=== PATIENT | male | born 1990 | race American Indian/Alaskan Native ===

== ENCOUNTER 2017-01-03 04:59 | Emergency (ER) | payer OTHER ==
[2017-01-03 07:26] VITALS: BP 139/78
--- NOTE | 2017-01-03 07:47 | Emergency Department Report ---
HPI - General Chief Complaint: Sore Throat Time Seen by Provider: 01/03/17 07:41 - HPI HPI: Patient here report sre throat, fever and bodyache x 2 days. Denies nausea or vomitting. Reports fgever and chillls, Pain worst with swallowing better with advil. Pain 6/10. No difficulty breathing, swallow. Reports fever and chills. No cough or nasal congestion. ED Past Medical Hx - Past Medical History Previous Medical History?: No - Surgical History Past Surgical History?: No - Family History Family history: no significant - Social History Smoking Status: Never Smoker Substance Use Type: Alcohol - Medications Home Medications: Home Medications Medication Instructions Recorded Confirmed Last Taken Type Ibuprofen [Motrin] 600 mg PO Q8H PRN #15 tablet 01/03/17 Unknown Rx Penicillin Vk [Veetids TAB] 2 tabcap PO Q8H #60 tablet 01/03/17 Unknown Rx ED Review of Systems ROS: Stated complaint: FLU SYMPTOMS X4DAYS Other details as noted in HPI Comment: All other systems reviewed and negative Constitutional: chills, fever ENT: throat pain. denies: ear pain, dental pain, congestion Respiratory: no symptoms reported Cardiovascular: denies: chest pain, palpitations, edema, syncope Gastrointestinal: denies: abdominal pain, nausea, vomiting, diarrhea, constipation Musculoskeletal: myalgia. denies: back pain, joint swelling, arthralgia Skin: denies: rash Neurological: denies: headache, numbness, paresthesias, confusion, abnormal gait Physical Exam - Physical Exam Vital Signs: Vital Signs 01/03/17 07:23 Temperature 100.5 F H Pulse Rate 91 H Respiratory 16 Rate Blood Pressure 139/78 O2 Sat by Pulse 99 Oximetry Vital Signs 01/03/17 01/03/17 07:23 07:43 Temperature 100.5 F H 99.6 F Pulse Rate 91 H 92 H Respiratory 16 17 Rate Blood Pressure 139/78 O2 Sat by Pulse 99 100 Oximetry General: This is a 26 yo male well nourished and well developed in no acute distress Physical Exam: head: normocephalic. Atraumatic Mouth: moist. Positive Pharyngeal exudate, no peritonsillar abscess noted. Positive pharyngeal erythema. tongue normal and Uvula is midline. Neck: positive cervical adenopathy. Full ROM. Supple. No C-spine tenderness Nose: Normal Mucosa, no drainage. No Maxillary or frontal Sinus tenderness Ears: Daniel eac without redness or drainage, Daniel TM pearly Salcedo. tragus NTTP Lungs: CTAB. Normal work of breathing. CV: S1 S2. RRR. NO murmur. Ext: No CCE. +2 Pulses. No neuro vascular compromise Psych: Normal mood and behavior Abdomen: Soft, NTTP. Normal BS. Nor gaurding or rebound tenderness Skin: CDI, NO rash, No lesions ED Course Vital Signs 01/03/17 07:23 Temperature 100.5 F H Pulse Rate 91 H Respiratory 16 Rate Blood Pressure 139/78 O2 Sat by Pulse 99 Oximetry Vital Signs 01/03/17 01/03/17 07:23 07:43 Temperature 100.5 F H 99.6 F Pulse Rate 91 H 92 H Respiratory 16 17 Rate Blood Pressure 139/78 O2 Sat by Pulse 99 100 Oximetry - Reevaluation(s) Reevaluation #1: 01/03/17 07:57 VSS. No complaints ED Medical Decision Making - Medical Decision Making ED Course: Patient with exudative pharyngitis based on physical finding of erythema, exudative oropharynx, enlarge lymph nodes and fever with absence of cough. Diagnosis and treatment plans explained to patient and he voiced understanding. Discharge home in stable condition . To follow up with PCP in 3 days ASSESS/PLAN 1. Exudative Pharyngitis 2. Fever in adults Discharge home with prescription for motrin and Pen VK to follow up with pcp Critical care attestation.: If time is entered above; I have spent that time in minutes in the direct care of this critically ill patient, excluding procedure time. ED Disposition Clinical Impression: Exudative pharyngitis, Fever in adult Disposition: DC-01 TO HOME OR SELFCARE Is pt being admited?: No Does the pt Need Aspirin: No Condition: Stable Instructions: Fever in Adults (ED), Strep Throat (ED) Additional Instructions: Increase fluid intake Take antibiotics as prescribes gargle with warm salt water Take motrin as needed for pain Prescriptions: Ibuprofen [Motrin] 600 mg PO Q8H PRN #15 tablet PRN Reason: Pain Penicillin Vk [Veetids TAB] 2 tabcap PO Q8H #60 tablet Referrals: PRIMARY CARE,MD [Primary Care Provider] - 2-3 Days Forms: Work/School Release Form(ED)
== END 2017-01-03 08:16 | disposition home or self-care (01) ==
LOC: ED 04:59
DX: J02.9 Acute pharyngitis, unspecified (principal); R50.9 Fever, unspecified
CPT/HCPCS: 99283

== ENCOUNTER 2019-02-26 15:38 | Emergency (ER) | payer OTHER ==
[2019-02-26 17:19] VITALS: BP 114/67
--- NOTE | 2019-02-26 17:24 | Emergency Department Report ---
Chief Complaint: Sore Throat Stated Complaint: FATIGUE/CANT EAT Time Seen by Provider: 02/26/19 17:15 - HPI History of Present Illness: This is a 28 y.o. M. that presents to the ER with sore throat, cough, congestion, and chills for 1 week. Taking aleve and OTC cold and flu medication with minimal improvement. 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 Patient denies any drooling or hoarseness. Denies any fever, chills, headache, nausea, vomiting, chest pain or SOB. Denies any other complaints. Patient stated allergies to morphine. - ROS Review of Systems: Constitutional: denies: chills, fever ENT: admits: throat pain, congestion, denies: ear pain Respiratory: admits: cough, denies: shortness of breath, wheezing Cardiovascular: denies: chest pain, palpitations Gastrointestinal: denies: abdominal pain, nausea, diarrhea Skin: denies: rash, lesions Neurological: denies: headache, weakness, paresthesias Psychiatric: denies: anxiety, depression - Exam Vital Signs: Vital Signs 02/26/19 17:18 Temperature 98 F Pulse Rate 80 Respiratory 18 Rate Blood Pressure 114/67 O2 Sat by Pulse 98 Oximetry Physical Exam: General appearance: alert, in no apparent distress ENT exam: Present: turbinates congested with clear discharge, normal orophraynx, mucous membranes moist, absent: sinus tenderness Neck exam: Present: normal inspection, full ROM. Absent: tenderness, meningismus, lymphadenopathy, thyromegaly Respiratory exam: Present: normal lung sounds bilaterally Cardiovascular Exam: Present: regular rate, normal rhythm, normal heart sounds GI/Abdominal exam: Present: soft, normal bowel sounds. Absent: distended, tenderness, guarding, rebound, rigid, organomegaly, mass, bruit, pulsatile mass, hernia Extremities exam: Present: normal inspection, full ROM, normal capillary refill. Absent: tenderness, pedal edema, calf tenderness Back exam: Present: normal inspection, full ROM. Absent: CVA tenderness (R), CVA tenderness (L) Neurological exam: Present: alert, oriented X3, CN II-XII intact Psychiatric exam: Present: normal mood Skin exam: Present: warm, intact, normal color MSE screening note: Focused history and physical exam performed. Due to findings the following was ordered: ED Medical Decision Making - Medical Decision Making Patient is stable and was examined by me. Upper respiratory symptoms. Vitals are all stable and patient in no acute distress. Start flonase, mucinex, tessalon perles, and cetrizine. Patient was instructed to Follow-up with a primary care doctor in 3-5 days or if symptoms worsen and continue return to emergency room as soon as possible. At time of discharge, the patient does not seem toxic or ill in appearance. Patient agrees to discharge treatment plan of care. No further questions noted by the patient. ED Disposition for MSE Clinical Impression: Upper respiratory infection Qualifiers: URI type: acute nasopharyngitis (common cold) Qualified Code(s): J00 - Acute nasopharyngitis [common cold] Disposition: TO HOME OR SELFCARE Is pt being admited?: No Condition: Stable Instructions: Upper Respiratory Infection (ED), Cold Symptoms (ED) Additional Instructions: Follow-up with a primary care doctor in 3-5 days or if symptoms worsen and continue return to the emergency department as soon as possible. Prescriptions: Fluticasone [Flonase] 1 spray NS QDAY #1 bottle Guaifen/Dextromethorphan/PE [Mucinex Fast-Max Congest-Cough] 1 each PO Q6H #20 tablet Benzonatate [Tessalon Perles] 100 mg PO Q8HR PRN #30 capsule PRN Reason: Cough Cetirizine HCl [Zyrtec 10mg tab] 10 mg PO DAILY #30 tablet Referrals: [facility], [facility] [Provider Group] - 3-5 Days [facility] [Provider Group] - 3-5 Days [facility] [Provider Group] - 3-5 Days Forms: Accompanied Note, Work/School Release Form(ED) Time of Disposition: 17:58
== END 2019-02-26 18:08 | disposition home or self-care (01) ==
LOC: ED 15:38
DX: J06.9 Acute upper respiratory infection, unspecified (principal)

== ENCOUNTER 2019-03-08 03:00 | Emergency (ER) | payer OTHER ==
[2019-03-08 03:36] VITALS: BP 117/82
[2019-03-08] MEDS ORDERED: ROCEPHIN IM ONE (05:28)
[2019-03-08] MEDS ORDERED: ZITHROMAX PO ONE (05:28)
[2019-03-08] MEDS ORDERED: XYLOCAINE 1% MPF 5 mL INFILTRATI ONE (05:28)
--- NOTE | 2019-03-08 05:45 | Emergency Department Report ---
ED Male HPI - General Chief complaint: Urogenital-Male Stated complaint: GARCIA WHEN URINATING Time Seen by Provider: 03/08/19 05:21 Source: patient Mode of arrival: Ambulatory Limitations: No Limitations - History of Present Illness Initial comments: Patient is a 28-year-old -Japanese male who presents with dysuria or penile discharges white thick, patient presents with partner for treatment for STI there is , no lesions, no rash, no open sores. There is no abdominal pain, no fever or chills ,no nausea /vomiting. MD Complaint: dysuria Onset/Timin -: days(s) Location: penis Radiation: none Severity: moderate Severity scale (0 -10): 5 Quality: burning Consistency: constant Improves with: none Worsens with: urination discharge, dysuria. denies: swelling, mass, rash, urinary retention, blood in urine, fever, nausea/vomiting, incontinence - Related Data Previous Rx's Medication Instructions Recorded Last Taken Type Ibuprofen [Motrin] 600 mg PO Q8H PRN #15 tablet 01/03/17 Unknown Rx Penicillin Vk [Veetids TAB] 2 tabcap PO Q8H #60 tablet 01/03/17 Unknown Rx Benzonatate [Tessalon Perles] 100 mg PO Q8HR PRN #30 capsule 02/26/19 Unknown Rx Cetirizine HCl [Zyrtec 10mg tab] 10 mg PO DAILY #30 tablet 02/26/19 Unknown Rx Fluticasone [Flonase] 1 spray NS QDAY #1 bottle 02/26/19 Unknown Rx Guaifen/Dextromethorphan/PE 1 each PO Q6H #20 tablet 02/26/19 Unknown Rx [Mucinex Fast-Max Congest-Cough] Doxycycline Hyclate [Doxycycline 100 mg PO BID 10 Days #20 tab 03/08/19 Unknown Rx Hyclate TAB] Allergies Allergy/AdvReac Type Severity Reaction Status Date / Time No Known Allergies Allergy Unverified 01/03/17 08:05 ED Review of Systems ROS: Stated complaint: GARCIA WHEN URINATING Other details as noted in HPI Constitutional: denies: chills, fever Eyes: denies: eye pain, eye discharge, vision change ENT: denies: ear pain, throat pain Respiratory: denies: cough, shortness of breath, wheezing Cardiovascular: denies: chest pain, palpitations Endocrine: no symptoms reported Gastrointestinal: nausea, vomiting, diarrhea. denies: abdominal pain Genitourinary: urgency, dysuria, frequency, discharge. denies: hematuria, testicular pain, testicular mass Musculoskeletal: denies: back pain, joint swelling, arthralgia Skin: as per HPI Neurological: denies: headache, weakness, paresthesias Psychiatric: denies: anxiety, depression Hematological/Lymphatic: denies: easy bleeding, easy bruising ED Past Medical Hx - Past Medical History Previous Medical History?: No - Surgical History Past Surgical History?: No - Social History Smoking Status: Never Smoker Substance Use Type: None - Medications Home Medications: Home Medications Medication Instructions Recorded Confirmed Last Taken Type Ibuprofen [Motrin] 600 mg PO Q8H PRN #15 tablet 01/03/17 Unknown Rx Penicillin Vk [Veetids TAB] 2 tabcap PO Q8H #60 tablet 01/03/17 Unknown Rx Benzonatate [Tessalon Perles] 100 mg PO Q8HR PRN #30 capsule 02/26/19 Unknown Rx Cetirizine HCl [Zyrtec 10mg tab] 10 mg PO DAILY #30 tablet 02/26/19 Unknown Rx Fluticasone [Flonase] 1 spray NS QDAY #1 bottle 02/26/19 Unknown Rx Guaifen/Dextromethorphan/PE 1 each PO Q6H #20 tablet 02/26/19 Unknown Rx [Mucinex Fast-Max Congest-Cough] Doxycycline Hyclate [Doxycycline 100 mg PO BID 10 Days #20 tab 03/08/19 Unknown Rx Hyclate TAB] ED Physical Exam - General Limitations: No Limitations General appearance: alert, in no apparent distress - Head Head exam: Present: atraumatic, normocephalic - Eye Eye exam: Present: normal appearance - ENT ENT exam: Present: mucous membranes moist - Neck Neck exam: Present: normal inspection, full ROM. Absent: tenderness, lymphadenopathy, thyromegaly - Respiratory Respiratory exam: Present: normal lung sounds bilaterally. Absent: respiratory distress, wheezes, stridor, chest wall tenderness - Cardiovascular Cardiovascular Exam: Present: regular rate, normal rhythm, normal heart sounds. Absent: systolic murmur, diastolic murmur, rubs, gallop - GI/Abdominal GI/Abdominal exam: Present: soft, normal bowel sounds. Absent: distended, tenderness, guarding, rebound, rigid, bruit, hernia - Rectal Rectal exam: Present: deferred - exam: Present: other (deferred) - Extremities Exam Extremities exam: Present: normal inspection, full ROM. Absent: tenderness - Back Exam Back exam: Present: normal inspection, full ROM. Absent: tenderness, CVA tenderness (R), CVA tenderness (L), rash noted - Neurological Exam Neurological exam: Present: alert, oriented X3, CN II-XII intact, normal gait - Psychiatric Psychiatric exam: Present: normal affect, normal mood - Skin Skin exam: Present: warm, dry, intact, normal color. Absent: rash ED Course Vital Signs 03/08/19 03:08 Temperature 98.2 F Pulse Rate 60 Respiratory 18 Rate Blood Pressure 117/82 O2 Sat by Pulse 97 Oximetry ED Medical Decision Making - Medical Decision Making pt tx for Dysuria STI Exposure, pt will dc't to home with rx for doxycycline , pt will follow up with health department for HIV and HSV screening. Critical care attestation.: If time is entered above; I have spent that time in minutes in the direct care of this critically ill patient, excluding procedure time. ED Disposition Clinical Impression: STI (sexually transmitted infection) Disposition: DC-01 TO HOME OR SELFCARE Is pt being admited?: No Does the pt Need Aspirin: No Condition: Undetermined Instructions: Sexually Transmitted Diseases (ED) Prescriptions: Doxycycline Hyclate [Doxycycline Hyclate TAB] 100 mg PO BID 10 Days #20 tab Referrals: [facility] [Outside] - 3-5 Days Forms: Work/School Release Form(ED) Time of Disposition: 05:51
== END 2019-03-08 06:18 | disposition home or self-care (01) ==
LOC: ED 03:00
DX: A64 Unspecified sexually transmitted disease (principal); Z79.899 Other long term (current) drug therapy
CPT/HCPCS: 96372; 99282; J0696

== ENCOUNTER 2019-04-21 12:03 | Emergency (ER) | payer OTHER ==
--- NOTE | 2019-04-21 12:23 | Emergency Department Report ---
HPI - General Time Seen by Provider: 04/21/19 12:07 - HPI HPI: 28-year-old male presents to the emergency department via EMS from home after his significant other witnessed some convulsions or seizure-like activity. EMS arrived to find the same convulsions occurring but say that he was responsive to his name, verbal cues, and followed commands while this was happening. Patient denies any history of seizures. The patient is awake, alert, oriented while in the emergency department. 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 He admits that he was told to follow up with cardiology but never did. The patient says that he is depressed regarding "my life" but denies any suicidal or homicidal ideations. The patient keeps saying "do I have to be here, I don't want to be here." ED Past Medical Hx - Social History Smoking Status: Never Smoker Substance Use Type: None - Medications Home Medications: Home Medications Medication Instructions Recorded Confirmed Last Taken Type Ibuprofen [Motrin] 600 mg PO Q8H PRN #15 tablet 01/03/17 Unknown Rx Penicillin Vk [Veetids TAB] 2 tabcap PO Q8H #60 tablet 01/03/17 Unknown Rx Benzonatate [Tessalon Perles] 100 mg PO Q8HR PRN #30 capsule 02/26/19 Unknown Rx Cetirizine HCl [Zyrtec 10mg tab] 10 mg PO DAILY #30 tablet 02/26/19 Unknown Rx Fluticasone [Flonase] 1 spray NS QDAY #1 bottle 02/26/19 Unknown Rx Guaifen/Dextromethorphan/PE 1 each PO Q6H #20 tablet 02/26/19 Unknown Rx [Mucinex Fast-Max Congest-Cough] Doxycycline Hyclate [Doxycycline 100 mg PO BID 10 Days #20 tab 03/08/19 Unknown Rx Hyclate TAB] ED Review of Systems ROS: Stated complaint: CONVULSIONS Other details as noted in HPI Comment: All other systems reviewed and negative Respiratory: denies: shortness of breath Cardiovascular: chest pain Neurological: headache Psychiatric: depression. denies: homicidal thoughts, suicidal thoughts Physical Exam - Physical Exam Physical Exam: GENERAL: The patient is well-developed well-nourished. HENT: Normocephalic. Atraumatic. Patient has moist mucous membranes. EYES: Extraocular motions are intact. NECK: Supple. Trachea is midline. CHEST/LUNGS: Clear to auscultation. There is no respiratory distress noted. HEART/CARDIOVASCULAR: Regular. There is no tachycardia. There is no murmur. ABDOMEN: Abdomen is soft, nontender. Patient has normal bowel sounds. There is no abdominal distention. SKIN: Skin is warm and dry. NEURO: The patient is awake, alert, and oriented. The patient has no focal neurologic deficits. Normal speech. MUSCULOSKELETAL: There is no tenderness or deformity. There is no limitation range of motion. There is no evidence of acute injury. ED Course - Reevaluation(s) Reevaluation #1: This patient repeatedly kept saying that he does not want to be in the emergency department and wants to leave. The patient was evaluated and is awake, alert, oriented. I explained to him that there are risks of leaving with his complaints of chest pain, headache, and his history of WPW. These risks include continued chest pain, continued headache, heart attack, dysrhythmia, coma or . The patient understands these risks and despite that still wants to leave AGAINST MEDICAL ADVICE. The patient also understands that he can return to the emergency department at any time if he changes his mind about wanting to be evaluated, or with any acute distress. Just after the patient signed out AMA, the patient started becoming agitated and belligerent, cursing at multiple members of the ER staff. He was then escorted out by security. 04/21/19 12:26 ED Medical Decision Making - Medical Decision Making This patient initially came in by EMS after he had some convulsions or seizure- like activity however it appears that the patient was awake and alert when this occurred. The patient has been awake and oriented since arrival to the emergency department. His heart and lungs sounds are normal to auscultation. The patient was able to tell me about his chronic history of chest pains, headaches and his recent depression without suicidal or homicidal ideations. His vital signs are within normal limits. I explained to the patient that given his history of the chest pain, headaches, convulsions and a history of Red Parkinson White, that we will need some laboratory testing done, EKG, a chest x- ray, and potentially a CT scan of the head. The patient is refusing all testing and asking to leave the emergency department. The patient is able to answer all questions appropriately, is awake and oriented, and appears to have normal decision making capacity. Therefore, after all of the risks were discussed with the patient, he has still requested to leave AGAINST MEDICAL ADVICE and was allowed to do so. On his way out the patient became very belligerent and aggressive towards ER staff and security escorted him out of the emergency department. Prior to this occurring, the patient was notified that he could return to the emergency department at any time if he changes his mind about evaluation or if he has any acute distress. Critical Care Time: No Critical care attestation.: If time is entered above; I have spent that time in minutes in the direct care of this critically ill patient, excluding procedure time. ED Disposition Clinical Impression: Seizure-like activity, History of Dgfkr-[id number]-[id number] (WPW) syndrome Chest pain Qualifiers: Chest pain type: unspecified Qualified Code(s): R07.9 - Chest pain, unspecified Disposition: DC-07 LEFT AGAINST MED ADVICE Is pt being admited?: No Condition: Stable Instructions: Chest Pain (ED) Additional Instructions: Please return to the emergency department immediately if you change your mind about any workup related to your complaints of chest pain, headache or seizure- like activity, or return with any acute distress. Referrals: PRIMARY CARE, [Primary Care Provider] - 3-5 Days Forms: AMA Form Time of Disposition: 12:28
[2019-04-21 12:44] VITALS: BP 127/85
== END 2019-04-21 12:27 | disposition left against medical advice (07) ==
LOC: ED 12:03
DX: R56.9 Unspecified convulsions (principal); R07.89 Other chest pain; R51 Headache; I45.6 Pre-excitation syndrome; Z79.899 Other long term (current) drug therapy
CPT/HCPCS: 99282

== ENCOUNTER 2019-07-08 09:22 | Emergency (ER) | payer OTHER ==
[2019-07-08 09:28] VITALS: BP 126/70
--- NOTE | 2019-07-08 11:36 | Event Note ---
ED Screening Note ED Screening Note: states that he has pain in his bilateral lower wisdom teeth that began a few days ago last saw a dentist years ago states he also has pain in the bilateral ears for a few days states he has body aches states he also has discomfort in the neck after sleeping in a car no fever no v/d no ear drainage no difficulty hearing PMHx none no allergies to meds
--- NOTE | 2019-07-08 11:41 | Emergency Department Report ---
ED General Adult HPI - General Chief complaint: Dental/Oral Stated complaint: TOOTH/NECK ISSUES Time Seen by Provider: 07/08/19 11:31 Source: patient Mode of arrival: Ambulatory Limitations: No Limitations - History of Present Illness Initial comments: pt is a 28 yo male who states that he has pain in his bilateral lower wisdom teeth that began a few days ago last saw a dentist multiple years ago states he also has pain in the bilateral ears for a few days states he has body aches states he also has discomfort in the neck after sleeping in a car no fever no v/d no ear drainage no difficulty hearing no numbness no weakness PMHx none no allergies to meds - Related Data Previous Rx's Medication Instructions Recorded Last Taken Type Ibuprofen [Motrin] 600 mg PO Q8H PRN #15 tablet 01/03/17 Unknown Rx Penicillin Vk [Veetids TAB] 2 tabcap PO Q8H #60 tablet 01/03/17 Unknown Rx Benzonatate [Tessalon Perles] 100 mg PO Q8HR PRN #30 capsule 02/26/19 Unknown Rx Cetirizine HCl [Zyrtec 10mg tab] 10 mg PO DAILY #30 tablet 02/26/19 Unknown Rx Fluticasone [Flonase] 1 spray NS QDAY #1 bottle 02/26/19 Unknown Rx Guaifen/Dextromethorphan/PE 1 each PO Q6H #20 tablet 02/26/19 Unknown Rx [Mucinex Fast-Max Congest-Cough] Doxycycline Hyclate [Doxycycline 100 mg PO BID 10 Days #20 tab 03/08/19 Unknown Rx Hyclate TAB] Neomy/Polymyx B/Hc Otic Susp 4 drops AD QID 10 Days #1 bottle 07/08/19 Unknown Rx [Cortisporin (Otic) Susp] Allergies Allergy/AdvReac Type Severity Reaction Status Date / Time No Known Allergies Allergy Unverified 01/03/17 08:05 ED Review of Systems ROS: Stated complaint: TOOTH/NECK ISSUES Other details as noted in HPI Comment: All other systems reviewed and negative ED Past Medical Hx - Past Medical History Previous Medical History?: No - Surgical History Past Surgical History?: No - Social History Smoking Status: Never Smoker Substance Use Type: None - Medications Home Medications: Home Medications Medication Instructions Recorded Confirmed Last Taken Type Ibuprofen [Motrin] 600 mg PO Q8H PRN #15 tablet 01/03/17 Unknown Rx Penicillin Vk [Veetids TAB] 2 tabcap PO Q8H #60 tablet 01/03/17 Unknown Rx Benzonatate [Tessalon Perles] 100 mg PO Q8HR PRN #30 capsule 02/26/19 Unknown Rx Cetirizine HCl [Zyrtec 10mg tab] 10 mg PO DAILY #30 tablet 02/26/19 Unknown Rx Fluticasone [Flonase] 1 spray NS QDAY #1 bottle 02/26/19 Unknown Rx Guaifen/Dextromethorphan/PE 1 each PO Q6H #20 tablet 02/26/19 Unknown Rx [Mucinex Fast-Max Congest-Cough] Doxycycline Hyclate [Doxycycline 100 mg PO BID 10 Days #20 tab 03/08/19 Unknown Rx Hyclate TAB] Neomy/Polymyx B/Hc Otic Susp 4 drops AD QID 10 Days #1 bottle 07/08/19 Unknown Rx [Cortisporin (Otic) Susp] ED Physical Exam - General Limitations: No Limitations General appearance: alert, in no apparent distress - Head Head exam: Present: atraumatic, normocephalic - Eye Eye exam: Present: normal appearance - ENT ENT exam: Present: normal orophraynx, mucous membranes moist, other (left tm and canal are normal, right TM is normal, right canal is erythematous and scaling, no tonsillar exudates or hypertrophy, uvula is midline, no uvular edema or deviation, very poor dentition, several dental caries/cracked teeth, no edema or induration of the gum line or jaw line, no ttp underneath the tongue, no facial swelling) - Neck Neck exam: Present: normal inspection, full ROM. Absent: tenderness, meningismus - Respiratory Respiratory exam: Present: normal lung sounds bilaterally. Absent: respiratory distress, wheezes, rales, rhonchi, stridor, chest wall tenderness, accessory muscle use, decreased breath sounds, prolonged expiratory - Cardiovascular Cardiovascular Exam: Present: regular rate, normal rhythm, normal heart sounds. Absent: systolic murmur, diastolic murmur, rubs, gallop - Neurological Exam Neurological exam: Present: alert, oriented X3 - Psychiatric Psychiatric exam: Present: normal affect, normal mood - Skin Skin exam: Present: warm, dry, intact ED Course Vital Signs 07/08/19 07/08/19 09:25 11:33 Temperature 97.6 F 98 F Pulse Rate 54 L 68 Respiratory 18 18 Rate Blood Pressure 126/70 [Right] O2 Sat by Pulse 98 97 Oximetry ED Medical Decision Making - Medical Decision Making pt is a 28 yo male who states that he has pain in his bilateral lower wisdom teeth that began a few days ago last saw a dentist multiple years ago states he also has pain in the bilateral ears for a few days states he has body aches states he also has discomfort in the neck after sleeping in a car no fever no v/d no ear drainage no difficulty hearing no numbness no weakness PMHx none no allergies to meds vss on exam: left tm and canal are normal, right TM is normal, right canal is erythematous and scaling, no tonsillar exudates or hypertrophy, uvula is midline, no uvular edema or deviation, very poor dentition, several dental caries/cracked teeth, no edema or induration of the gum line or jaw line, no ttp underneath the tongue, no facial swelling, full range of motion of the neck, no midline C-spine tenderness, no neck stiffness, no meningeal signs, no neuro deficits, breath sounds are clear bilaterally, no wheezing, no rales, no rhonchi. No signs of dental abscess or facial cellulitis. Examination consistent with otitis externa and muscle strain of the neck. Patient given prescription for antibiotic eardrops. NEXUS criteria negative, no traumatic injury. advised pt to please use medication as prescribed. may take tylenol or ibuprofen as needed for discomfort. may use ice pack, heating pad, rest, epsom salt bath. increase your water intake. get plenty of rest. follow up with a primary care doctor for reexamination. follow up with a dentist. it is very important you follow up. return to the emergency room for any new or worsening symptoms. Critical care attestation.: If time is entered above; I have spent that time in minutes in the direct care of this critically ill patient, excluding procedure time. ED Disposition Clinical Impression: Dental caries, Cracked tooth Otitis externa Qualifiers: Otitis externa type: unspecified type Chronicity: acute Laterality: right Qualified Code(s): H60.501 - Unspecified acute noninfective otitis externa, right ear Cervical muscle strain Qualifiers: Encounter type: initial encounter Qualified Code(s): S16.1XXA - Strain of m uscle, fascia and tendon at neck level, initial encounter Disposition: DC- TO HOME OR SELFCARE Is pt being admited?: No Does the pt Need Aspirin: No Condition: Stable Instructions: Muscle Strain (ED), Dental Caries (ED), Otitis Externa (ED) Additional Instructions: please use medication as prescribed. may take tylenol or ibuprofen as needed for discomfort. may use ice pack, heating pad, rest, epsom salt bath. increase your water intake. get plenty of rest. follow up with a primary care doctor for reexamination. follow up with a dentist. it is very important you follow up. return to the emergency room for any new or worsening symptoms. Prescriptions: Neomy/Polymyx B/Hc Otic Susp [Cortisporin (Otic) Susp] 4 drops AD QID 10 Days #1 bottle Referrals: NARENDRA FERRO MD [Staff Physician] - 2-3 Days [facility] [Outside] - 2-[address] [facility] [Outside] - 2-3 Days [facility] [Outside] - 2-3 Days Time of Disposition: 11:40 Print Language: [place] CITIZEN
== END 2019-07-08 11:53 | disposition home or self-care (01) ==
LOC: ED 09:22
DX: S16.1XXA Strain of muscle, fascia and tendon at neck level, initial encounter (principal); H60.501 Unspecified acute noninfective otitis externa, right ear; K02.9 Dental caries, unspecified; K03.81 Cracked tooth; Z79.899 Other long term (current) drug therapy; X58.XXXA Exposure to other specified factors, initial encounter; Y93.89 Activity, other specified; Y92.89 Other specified places as the place of occurrence of the external cause; Y99.8 Other external cause status
CPT/HCPCS: 99281

== ENCOUNTER 2019-09-27 03:30 | Emergency (ER) | payer OTHER ==
--- NOTE | 2019-09-27 04:11 | Emergency Department Report ---
HPI - General Chief Complaint: Cardiac Arrest/CPR Time Seen by Provider: 09/27/19 04:04 - HPI HPI: 29-year-old -[place] male presents to the emergency department via EMS from home in cardiac arrest. Patient was with his girlfriend when he suddenly dropped to the ground. At first she thought he was joking around but then realized something was wrong and called 911. EMS found the patient to be unresponsive and pulseless. At first he was in asystole and then PEA upon arrival to our emergency department. He was intubated by EMS and they were performing ACLS protocol including chest compressions and the patient received 5 rounds of epinephrine. EMS says that he has a history of diabetes. The patient has been to our emergency department previously and records show that he has some history of previous [id number]. ED Past Medical Hx - Social History Smoking Status: Never Smoker Substance Use Type: None - Medications Home Medications: Home Medications Medication Instructions Recorded Confirmed Last Taken Type Ibuprofen [Motrin] 600 mg PO Q8H PRN #15 tablet 01/03/17 Unknown Rx Penicillin Vk [Veetids TAB] 2 tabcap PO Q8H #60 tablet 01/03/17 Unknown Rx Benzonatate [Tessalon Perles] 100 mg PO Q8HR PRN #30 capsule 02/26/19 Unknown Rx Cetirizine HCl [Zyrtec 10mg tab] 10 mg PO DAILY #30 tablet 02/26/19 Unknown Rx Fluticasone [Flonase] 1 spray NS QDAY #1 bottle 02/26/19 Unknown Rx Guaifen/Dextromethorphan/PE 1 each PO Q6H #20 tablet 02/26/19 Unknown Rx [Mucinex Fast-Max Congest-Cough] Doxycycline Hyclate [Doxycycline 100 mg PO BID 10 Days #20 tab 03/08/19 Unknown Rx Hyclate TAB] Neomy/Polymyx B/Hc Otic Susp 4 drops AD QID 10 Days #1 bottle 07/08/19 Unknown Rx [Cortisporin (Otic) Susp] ED Review of Systems ROS: Stated complaint: CARDIAC ARREST Other details as noted in HPI Comment: Unobtainable due to pts medical conditions Physical Exam - Physical Exam Physical Exam: GENERAL: Patient is ill-appearing and unresponsive. HENT: Normocephalic. Atraumatic. Endotracheal tube in place. EYES: Pupils are fixed and dilated. NECK: Supple. Trachea appears midline. CHEST/LUNGS: There are no spontaneous respirations. HEART/CARDIOVASCULAR: There are no spontaneous heart sounds. ABDOMEN: Abdomen is soft. There is no abdominal distention. SKIN: Skin is cool but dry. NEURO: Unresponsive. Does not withdraw to painful stimuli. Does not follow any commands. MUSCULOSKELETAL: There is no obvious deformity. There is no evidence of acute injury. No palpable femoral or radial pulses. ED Medical Decision Making - Medical Decision Making This patient presents to the emergency department in cardiac arrest. He had been intubated, was receiving chest compressions, and had 5 rounds of epinephrine. The patient was initially in asystole and then was in PEA, per EMS, upon arrival. Patient was immediately transferred to our [facility] in bed 21 will be continued ACLS protocol with high-quality chest compressions and bag valve ventilation through the endotracheal tube. There were no spontaneous heart or breath sounds. However, the patient did have breath sounds heard with bag valve ventilation. The patient had a total of 3 rounds of ACLS while in the emergency department and each rhythm check showed the patient to be in asystole. After the third round, the patient had received a total of 8 doses of epinephrine, had received a dose of sodium bicarbonate and calcium, but there was no return of spontaneous circulation. I took the bedside ultrasound and looked at the patient's heart but there was no movement, squeeze, or even fibrillation. At this point time of was called at 0340. Critical Care Time: Yes Critical care time in (mins) excluding proc time.: 15 Critical care attestation.: If time is entered above; I have spent that time in minutes in the direct care of this critically ill patient, excluding procedure time. Critical care time is spent on this patient in doing his initial evaluation, supervision of ACLS protocol, and discussion with patient's family. Critical Care Time: 15 minutes ED Disposition Clinical Impression: Cardiac arrest Acute respiratory failure Qualifiers: Respiratory failure complication: unspecified whether with hypoxia or hypercapnia Qualified Code(s): J96.00 - Acute respiratory failure, unspecified whether with hypoxia or hypercapnia Disposition: DC-20 Is pt being admited?: No Time of Disposition: 04:38
== END 2019-09-27 04:05 ==
LOC: ED 03:30
DX: I46.9 Cardiac arrest, cause unspecified (principal); J96.00 Acute respiratory failure, unspecified whether with hypoxia or hypercapnia; Z79.1 Long term (current) use of non-steroidal anti-inflammatories (NSAID); Z79.2 Long term (current) use of antibiotics; Z79.899 Other long term (current) drug therapy
CPT/HCPCS: 92950